=== PATIENT | female | born 1985 ===

== ENCOUNTER 2016-09-14 19:05 | Emergency (ER) | payer BC, OTHER ==
[2016-09-14 19:26] VITALS: BMI 23.8
[2016-09-14] MEDS ORDERED: Sodium Chloride 0.9% 1,000 ML IV STA (20:26)
[2016-09-14 20:54] LABS: ADD MANUAL DIFF? NO
[2016-09-14 21:01] LABS: BASO # 0.03 K/mm3 (0.0-2.0); BASO % 0.3 % (0.0-3.0); EOS # 0.2 (0.0-0.7); EOS % 2.7 % (1.5-5.0); GRAN # 5.56 (1.4-6.5); GRAN % 64.2 % (50.0-68.0); LYMPH # 2.3 (1.2-3.4); LYMPH % 26.5 % (22.0-35.0); MEAN CELL VOLUME 88.1 fL (80.0-105.0); MEAN CORPUSCULAR HEMOGLOBIN 29.3 pg (25.0-35.0); MEAN CORPUSCULAR HGB CONC 33.2 g/dl (31.0-37.0); MEAN PLATELET VOLUME 10.2 fl (7.0-11.0); MONO # 0.6 (0.1-0.6); MONO % 6.3 % (1.0-6.0); PLATELET COUNT 354 10^3/uL (120.0-450.0); RED CELL DISTRIBUTION WIDTH 13.1 % (11.5-14.5); WHITE BLOOD COUNT 8.7 10^3/ul (4.5-11.0)
--- NOTE | 2016-09-14 21:02 | ED PDOC ---
Arrival/HPI - General Chief Complaint: Lower Extremity Problem/Injury Time Seen by Provider: 09/14/16 19:43 Historian: Patient - History of Present Illness Narrative History of Present Illness (Text): 09/14/16 20:58 Patient reports constant throbbing atraumatic b/l calf pain x 2 days. States that for the past 2 months she started training for the [employer], her training includes running for 1.5 miles, lifting weights and various other exercise routines. She admits that prior to 2 months ago, she was not actively exercising. Otherwise: (-) trauma/injury, (-) chest pain, (-) dyspnea, (-) hemoptysis, (-) prior thromboembolic disease, (-) prolonged immobility or travel , (-) CHF, (-) known malignancy, (-) fever, (-) joint pain, (-) swelling. REBECCA Valdez Past Medical History - Provider Review Nursing Documentation Reviewed: Yes - Infectious Disease Hx of Infectious Diseases: None - Tetanus Immunization Tetanus Immunization: Unknown - Pulmonary Hx Asthma: Yes Hx Pneumonia: Yes - Neurological Hx Neurological Disorder: Yes Hx Migraine: Yes - HEENT Hx HEENT Disorder: No Other/Comment: uses distance eyeglasses - Renal Hx Renal Disorder: No - Endocrine/Metabolic Hx Endocrine Disorders: No - Hematological/Oncological Hx Blood Disorders: No - Integumentary Hx Dermatological Disorder: No - Musculoskeletal/Rheumatological Hx Musculoskeletal Disorders: No Hx Falls: No - Gastrointestinal Hx Gastrointestinal Disorders: No - Genitourinary/Gynecological Hx Genitourinary Disorders: No - Psychiatric Hx Psychophysiologic Disorder: No Hx Substance Use: No - Anesthesia Hx Anesthesia: Yes Hx Anesthesia Reactions: No Hx Malignant Hyperthermia: No - Suicidal Assessment Feels Threatened In Home Enviroment: No Family/Social History - Physician Review Nursing Documentation Reviewed: Yes Family/Social History: No Known Family HX Smoking Status: Never Smoked Hx Alcohol Use: No Hx Substance Use: No Hx Substance Use Treatment: No Allergies/Home Meds Allergies/Adverse Reactions: Allergies No Known Allergies Allergy (Verified 12/14/12 15:26) Review of Systems - Review of Systems Constitutional: Normal. absent: Fatigue, Weight Change, Fevers Respiratory: Normal. absent: SOB, Cough Cardiovascular: Normal. absent: Chest Pain, Palpitations, Edema Musculoskeletal: Normal, Myalgias. absent: Arthralgias, Back Pain, Neck Pain, Joint Swelling Skin: Normal. absent: Rash, Pruritis, Skin Lesions Neurological: Normal. absent: Headache, Dizziness Physical Exam - Physical Exam Narrative Physical Exam (Text): 09/14/16 21:01 GENERAL APPEARANCE: Patient is awake, alert, oriented x 3, in no acute distress. SKIN: Warm, dry; (-) cyanosis; (-) rash. HEAD: (-) scalp swelling, (-) tenderness. EYES: (-) conjunctival pallor, (-) scleral icterus. ENMT: Pharynx: (-) erythema; airway patent: (-) stridor; mucous membranes moist. NECK: (-) tenderness, (-) stiffness, (-) lymphadenopathy, (-) thyromegaly. CHEST AND RESPIRATORY: (-) rales, (-) rhonchi, (-) wheezes, (-) pleural friction rub; breath sounds equal bilaterally. HEART AND CARDIOVASCULAR: (-) irregularity; (-) murmur, (-) gallop, (-) pericardial rub. ABDOMEN AND GI: Soft; (-) tenderness, (-) guarding, (-) rebound, (-) palpable masses, (-) CVA tenderness. EXTREMITIES: Normal skin color, (-) deformities, (-) swelling, (+) b/l calftenderness, (-) palpable cord. Distal pulses: 2+, sensation intact b/l. NEURO AND PSYCH: Mental status as above. Cranial nerves grossly intact; strength symmetric. Vital Signs Temp Pulse Resp BP Pulse Ox 09/14/16 23:00 98 F 75 16 106/65 95 09/14/16 19:26 99.5 F 109 H 18 98/62 L 96 Medical Decision Making ED Course and Treatment: 09/14/16 21:02 31 yo F c/o b/l calf pain x 2 days with h/o recent training. Plan: -- Labs including CPK -- IV fluids -- Urinalysis -- Flexeril / Toradol -- Reassess and disposition -- XR b/l tib-fib 09/14/16 22:35 XR b/l tib-fib : (-) fracture as read by PA. On re-evaluation, patient reports significant improvement of pain. Denies any CP , dyspnea or SOB. Labs reviewed and discussed with the patient. CBC / CMP / CPK is nl. XRs negative for any stress fracture. Based on history, exam and diagnostic results plan will be for outpatient follow up. Patient advised o decrease the intensity of her current workout regimen, to stretch before every exercise and to stay adequately hydrated. Patient states she fully agrees with and understands discharge instructions. States that she agrees with the plan and disposition. Verbalized and repeated discharge instructions and plan. I have given the patient opportunity to ask any additional questions. Follow up with primary care physician in 1-2 days without fail. Advised to take medication as prescribed. Return to the emergency room at any time for any new or worsening symptoms. - Lab Interpretations Lab Results: 09/14/16 20:48 09/14/16 20:48 Lab Results 09/14/16 20:48: WBC 8.7, RBC 4.20, Hgb 12.3, Hct 37.0, MCV 88.1, MCH 29.3, MCHC 33.2, RDW 13.1, Plt Count 354, MPV 10.2, Gran % 64.2, Lymph % (Auto) 26.5, Emmet % (Auto) 6.3 H, Eos % (Auto) 2.7, Baso % (Auto) 0.3, Gran # 5.56, Lymph # 2.3, Emmet # 0.6, Eos # 0.2, Baso # 0.03, Sodium 137, Potassium 3.7, Chloride 102, Carbon Dioxide 25, Anion Gap 14, BUN 11, Creatinine 0.7, Est GFR ( Amer) > 60, Est GFR (Non-Af Amer) > 60, Random Glucose 87, Calcium 9.1, Total Bilirubin 1.0, AST 30, ALT 31, Alkaline Phosphatase 65, Total Creatine Kinase 107, Total Protein 7.3, Albumin 4.2, Globulin 3.2, Albumin/Globulin Ratio 1.3 - RAD Interpretation Radiology Orders: 09/14/16 20:26 TIBIA FIBULA LEFT [RAD] Stat TIBIA FIBULA RIGHT [RAD] Stat - Medication Orders Current Medication Orders: Discontinued Medications Cyclobenzaprine HCl (Flexeril) 10 mg PO STAT STA Stop: 09/14/16 20:27 Last Admin: 09/14/16 20:51 Dose: 10 MG Sodium Chloride (Sodium Chloride 0.9%) 1,000 mls @ 1,000 mls/hr IV .Q1H STA Stop: 09/14/16 21:25 Last Admin: 09/14/16 20:50 Dose: 1,000 MLS/HR eMAR Start Stop Document 09/14/16 20:50 FJA (Rec: 09/14/16 20:50 KIERRA [id number]) Intravenous Solution Start Date 09/14/16 Start Time 20:50 End Date 09/14/16 End time 21:51 Total Infusion Time 61 Ketorolac Tromethamine (Toradol) 30 mg IVP STAT STA Stop: 09/14/16 20:27 Last Admin: 09/14/16 20:50 Dose: 30 MG IVP Administration Document 09/14/16 20:50 FJA (Rec: 09/14/16 20:51 KIERRA [id number]) Charges for Administration # of IVP Administrations 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 Disposition/Present on Arrival - Present on Arrival Any Indicators Present on Arrival: No History of DVT/PE: No History of Uncontrolled Diabetes: No Urinary Catheter: No History of Decub. Ulcer: No History Surgical Site Infection Following: None - Disposition Have Diagnosis and Disposition been Completed?: Yes Diagnosis: Bilateral calf pain, Muscle spasm Disposition: HOME/ ROUTINE Disposition Time: 22:38 Patient Plan: Discharge Patient Problems: Current Active Problems Problem Status Diagnosed Mycoplasma pneumoniae pneumonia Acute Asthma Acute Pneumonia Acute Cough due to bronchospasm Chronic Asthma attacks lasting more than 24 hours Chronic Fever Resolved Condition: IMPROVED Discharge Instructions (ExitCare): Muscle Spasm (ED), Harrison Splints (ED) Print Language: FAROESE Additional Instructions: Thank you for letting us take care of you today. You were treated for calf pain , likely muscle spasm, consider harrison splints. The emergency medical care you received today was directed at your acute symptoms. If you were prescribed any medication, please fill it and take as directed. It may take several days for your symptoms to resolve. Return to the Emergency Department if your symptoms worsen, do not improve, or if you have any other problems. Please contact your doctor in 2 days for re-evaluation and follow up. Bring any paperwork you were given at discharge with you along with any medications you are taking to your follow up visit. Our treatment cannot replace ongoing medical care by a primary care provider (PCP) outside of the emergency department. Thank you for allowing the [facility] team to be part of your care today. Prescriptions: Cyclobenzaprine [Cyclobenzaprine HCl] 10 mg PO TID #15 tab Meloxicam [Mobic] 15 mg PO DAILY #20 tab Referrals: Becky Valdez MD [Primary Care Provider] - Follow up with primary Forms: WORK NOTE
[2016-09-14 21:14] LABS: ALB/GLOB RATIO 1.3 (1.1-1.8); ALKALINE PHOSPHATASE 65 U/L (38-133); ALT/SGPT 31 U/L (7-56); AST/SGOT 30 U/L (15-39); BLOOD UREA NITROGEN 11 mg/dL (7-21); CALCIUM 9.1 mg/dL (8.4-10.5); CARBON DIOXIDE 25 mmol/L (21-33); CHLORIDE 102 mmol/L (98-107); GFR AFRICAN-AMERICAN > 60; GLUCOSE,RANDOM 87 mg/dL (70-110); POTASSIUM 3.7 mmol/L (3.6-5.0); SODIUM 137 mmol/L (132-148); TOTAL PROTEIN 7.3 g/dL (5.8-8.3)
[2016-09-14 23:02] VITALS: BP 106/65; PULSE 75; RESP 16; TEMP 98; O2SAT 95
--- NOTE | 2016-09-15 07:41 | RAD ---
PROCEDURE: Radiographs of the left tibia and fibula. HISTORY: pain COMPARISON: None available. TECHNIQUE: Sign FINDINGS: BONES: No fracture or destructive lesion. JOINT SPACES: Unremarkable. OTHER FINDINGS: None. IMPRESSION: Unremarkable radiographs of the left tibia and fibula.
--- NOTE | 2016-09-15 07:42 | RAD ---
PROCEDURE: Radiographs of the right tibia and fibula. HISTORY: pain COMPARISON: None available. TECHNIQUE: Frontal and lateral views obtained. FINDINGS: BONES: No fracture or destructive lesion. JOINT SPACES: Unremarkable. OTHER FINDINGS: None. IMPRESSION: Unremarkable radiographs of the right tibia and fibula.
== END 2016-09-14 23:01 | disposition home or self-care (01) ==
LOC: ED 19:05
DX: M79.604 Pain in right leg (principal); M79.605 Pain in left leg; M62.838 Other muscle spasm
CPT/HCPCS: 73590; 80053; 82550; 85025; 96361; 96374; 99284; J1885; J7040

== ENCOUNTER 2018-10-20 07:13 | Outpatient (CLI) | payer BC | END 2018-10-20 07:14 | disposition home or self-care (01) | LOC: RAD 07:13 | DX: R53.2 Functional quadriplegia (principal); R20.0 Anesthesia of skin; M54.2 Cervicalgia ==